=== PATIENT | female | born 1995 | race Caucasian/White ===

== ENCOUNTER 2016-11-24 18:27 | Emergency (ER) | payer OTHER ==
[2016-11-24 18:45] VITALS: BP 122/70; PULSE 64; RESP 18; TEMP 98.1
--- NOTE | 2016-11-24 18:51 | ED ---
Eye Problem HPI - General Chief complaint: Eye Problems Stated complaint: Eye Pain Time Seen by Provider: 11/24/16 18:45 Source: patient, RN notes reviewed Mode of arrival: ambulatory Limitations: no limitations - History of Present Illness Initial comments: 21-year-old female presents to the emergency Department chief complaint of swelling to the left lower eyelid. Patient states it started this morning. Patient states she put warm compresses on it. Patient states she was concerned that maybe something more that she should be doing. Patient denies. Patient states she was concerned due to her continued symptoms so she thought that she should be evaluated.Patient denies any recent fever, chills, shortness of breath , chest pain, back pain, abdominal pain, nausea vomiting, numbness or tingling, dysuria or hematuria, constipation or diarrhea, headaches or visual changes, or any other current symptoms. - Related Data Previous Rx's Medication Instructions Recorded Ibuprofen [Motrin] 600 mg PO Q6HR PRN #30 tab 02/20/16 Allergies Allergy/AdvReac Type Severity Reaction Status Date / Time No Known Allergies Allergy Verified 09/09/14 23:19 Review of Systems ROS Statement: Those systems with pertinent positive or pertinent negative responses have been documented in the HPI. ROS Other: All systems not noted in ROS Statement are negative. Past Medical History Past Medical History: No Reported History Additional Past Medical History / Comment(s): migraine headaches. Obstetric history: This is her first and she has had good care with me since 15 weeks. EDC 02-08-15 by 15 and 20 week US. A neg, abs neg, Rub nonimmune, RPR NR, Hep B neg, HIV NR. normal 1hr GTT and rhogam given 12/12/13. Her 35 week US showed baby to be 3#15 oz <10%ile but normal LEONEL. She had some NSTs that were reactive. 2 weeks later the baby measured 5# and was <3%ile for growth. History of Any Multi-Drug Resistant Organisms: None Reported Past Surgical History: No Surgical Hx Reported Past Anesthesia/Blood Transfusion Reactions: No Reported Reaction Past Psychological History: No Psychological Hx Reported Smoking Status: Current some day smoker Past Alcohol Use History: None Reported Past Drug Use History: None Reported - Past Family History Mother Family Medical History: No Reported History General Exam Limitations: no limitations General appearance: alert, in no apparent distress Head exam: Present: atraumatic, normocephalic, normal inspection Eye exam: Present: normal appearance, PERRL, EOMI, periorbital swelling (Into the left lower eyelid that is consistent with sty). Absent: scleral icterus, conjunctival injection ENT exam: Present: normal exam, mucous membranes moist Neck exam: Present: normal inspection. Absent: tenderness, meningismus, lymphadenopathy Respiratory exam: Present: normal lung sounds bilaterally. Absent: respiratory distress, wheezes, rales, rhonchi, stridor Cardiovascular Exam: Present: regular rate, normal rhythm, normal heart sounds. Absent: systolic murmur, diastolic murmur, rubs, gallop, clicks Neurological exam: Present: alert, oriented X3 Skin exam: Present: warm, dry, intact, normal color. Absent: rash Course Vital Signs 11/24/16 18:43 Temperature 98.1 F Pulse Rate 64 Respiratory 18 Rate Blood Pressure 122/70 O2 Sat by Pulse 98 Oximetry Medical Decision Making - Medical Decision Making 21-year-old female presents for besides the left eye. At this time we discussed care of this. We discussed follow-up return parameters. We discussed all the patient's questions. She stated she understood and she is in agreement with the plan. She will be discharged home. Disposition Clinical Impression: Hordeolum externum (stye) Disposition: HOME SELF-CARE Condition: Stable Instructions: Yisel (ED) Additional Instructions: Please use medication as discussed. Please follow up with family doctor if symptoms have not improved over the next two days. Please return to the emergency room if your symptoms increase or worsen or for any other concerns. Referrals: Tiffanie Fisher MD [Primary Care Provider] - 1-2 days Time of Disposition: 18:51
== END 2016-11-24 18:57 | disposition home or self-care (01) ==
LOC: EC 18:27
DX: H00.015 Hordeolum externum left lower eyelid (principal); F17.200 Nicotine dependence, unspecified, uncomplicated
CPT/HCPCS: 99283

== ENCOUNTER → 2017-04-15 | Outpatient (CLI) | payer OTHER ==
[2017-04-15 15:51] LABS: CH 30.2; CHCM 34.7; HCT 38.6 % (34.0-46.0); HDW 2.53; HGB 12.8 gm/dL (11.4-16.0); MCHC 33.1 g/dL (31.0-37.0); MCV 87.7 fL (80.0-100.0); Mean Platelet Volume 7.8; RBC 4.41 m/uL (3.80-5.40); RDW 14.1 % (11.5-15.5); WBC 10.4 k/uL (3.8-10.6)
--- NOTE | 2017-04-15 16:18 | US ---
EXAMINATION TYPE: US OB <= 14 wk fetus DATE OF EXAM: 04/15/2017 COMPARISON: NONE CLINICAL HISTORY: 21-year-old female Z36 Dates and viability. EXAM PERFORMED: Transabdominal (TA) FINDINGS: EXAM MEASUREMENTS: GESTATIONAL AGE / DATING Physician Established: unknown Dates by LMP: LMP unknown Dates by First Scan: no prior Dates by Current Scan: (13 weeks/5 days) EDC: 10/16/2017 MATERNAL ANATOMY Uterus: 13.3 x 6.8 x 9.8 cm Right Ovary: 3.7 x 1.5 x 2.8 cm Left Ovary: 3.0 x 1.9 x 3.3 cm Post CDS / Adnexa: wnl Presence of free fluid: wnl Presence of corpus luteal cyst: 1.9 cm on the right. Presence of subchorionic bleed: No. GESTATION / SURVEY BIOMETRY PRESENTATION: ?Breech LIE: Longitudinal BPD:2.2 cm??? 13weeks /5days HC:8.5 cm??? 13weeks/6days AC: 6.9cm??? 13weeks/4days FL:1.1 cm? 13 weeks/2days ESTIMATED WEIGHT IN GRAMS: 76 gr. ESTIMATED WEIGHT IN LBS/OZS:0 lbs. 3 oz. HEART RATE: 143 bpm Date of LMP: unknown Beta HcG (if available): Not available at this time IMPRESSION: 1. Single live intrauterine with average gestational age of 13 weeks 5 days by current ultr asound biometry. 2. Complete survey recommended at 18-20 weeks.
--- NOTE | 2017-04-15 16:19 | US ---
EXAMINATION TYPE: US thyroid st tissue head/neck DATE OF EXAM: 04/15/2017 COMPARISON: NONE CLINICAL HISTORY: 21-year-old female E04.9 Enlarged thyroid. TECHNIQUE: Multiple sonographic images of the thyroid gland are obtained. FINDINGS: GLAND SIZE: Right Lobe: 3.9 X 1.2 X 1.4 cm Overall Parenchyma: homogenous Left Lobe: 4.3 X 1.9 X 2.4 cm Overall Parenchyma: heterogeneous Isthmus Thickness: 0.2 cm NODULES RIGHT: # of nodules measured on right: 0 LEFT: # of nodules measured on left: 1 1. 3.5 X 1.8 x 1.9 cm heterogeneous isoechoic solid nodule at the mid pole with well-defined margin s; . This nodule is wider than tall and shows intranodular vascularity. Prior size: no prior ISTHMUS: # of nodules measured in the isthmus: 0 Bilateral neck scanned, no evidence of lymphadenopathy. IMPRESSION: Large 3.5 cm solid nodule in the left lobe. FNA should be considered.
[2017-04-15 16:24] LABS: Glucose 77 mg/dL (74-99); Non-African American GFR(MDRD) >60 (>60 ml/min/1.73 sqM)
[2017-04-15 17:48] LABS: Hepatitis B Surface Ag Index 0.06
[2017-04-16 01:00] LABS: Treponemal Ab Non-Reactive (Non-Reactive)
== END | disposition home or self-care (01) ==
LOC: RADUSWWP 14:44
PROVIDERS: ATTEND Obstetrics & Gynecology
DX: Z36 Encounter for antenatal screening of mother (principal); O99.284 Endocrine, nutritional and metabolic diseases complicating childbirth; E04.1 Nontoxic single thyroid nodule; O26.811 Pregnancy related exhaustion and fatigue, first trimester; Z3A.13 13 weeks gestation of pregnancy
CPT/HCPCS: 36415; 76536; 76801; 82565; 82947; 84439; 84443; 84481; 85027; 86376; 86762; 86780; 86800; 86850; 86900; 86901; 87340; 87390

== ENCOUNTER → 2017-08-12 | Outpatient (CLI) | payer OTHER ==
[2017-08-12 13:32] LABS: HCT 34.3 % (34.0-46.0); HGB 11.2 gm/dL (11.4-16.0); MCH 28.4 pg (25.0-35.0); MCHC 32.6 g/dL (31.0-37.0); MCV 87.3 fL (80.0-100.0); Mean Platelet Volume 8.3; Platelet Count 197 k/uL (150-450); RBC 3.93 m/uL (3.80-5.40); RDW 13.8 % (11.5-15.5); WBC 15.7 k/uL (3.8-10.6)
== END | disposition home or self-care (01) ==
LOC: LABWHC1 12:22
PROVIDERS: ATTEND Obstetrics & Gynecology
DX: Z34.83 Encounter for supervision of other normal pregnancy, third trimester (principal)
CPT/HCPCS: 36415; 82950; 85027; 86850

== ENCOUNTER 2017-10-14 06:00 | Inpatient (IN) | payer OTHER ==
[2017-10-14] MEDS ORDERED: TERBUTALINE 1 MG/ML VIAL SQ PRN (06:25)
[2017-10-14] MEDS ORDERED: LIDOCAINE 1% (PF) 10 MG/ML (30 ML SDV) SQ PRN (06:25)
[2017-10-14] MEDS ORDERED: METHYLERGONOVINE 0.2 MG/ML 1 ML AMP IM PRN (06:25)
[2017-10-14] MEDS ORDERED: CARBOPROST TROMETHAMINE 250 MCG/ML 1 ML AMP IM PRN (06:25)
[2017-10-14] MEDS ORDERED: OXYTOCIN 10 UNIT/ML 1 ML VIAL IM PRN (06:25)
[2017-10-14] MEDS: LACTATED RINGERS 1,000 ML IV SCH ×2 (06:32→12:29)
[2017-10-14] MEDS: OXYTOCIN 20 UNITS/1000 ML NS 1,000 ML IV SCH ×2 (06:35→19:33)
[2017-10-14 06:40] LABS: Basophils % (A) 0 %; Eosinophils # (A) 0.1 k/uL (0-0.7); Eosinophils % (A) 1 %; HCT 34.4 % (34.0-46.0); HGB 11.6 gm/dL (11.4-16.0); Lymphocytes # (A) 2.9 k/uL (1.0-4.8); Lymphocytes % (A) 23 %; MCHC 33.7 g/dL (31.0-37.0); Mean Platelet Volume 8.1; Monocytes # (A) 0.5 k/uL (0-1.0); Monocytes % (A) 4 %; Neutrophils # (A) 8.7 k/uL (1.3-7.7); Neutrophils % (A) 70 %; Platelet Count 239 k/uL (150-450); Poikilocytosis Slight; RBC 4.46 m/uL (3.80-5.40); RDW 13.9 % (11.5-15.5); WBC 12.5 k/uL (3.8-10.6)
[2017-10-14 06:45] LABS: MCV 77.1 fL (80.0-100.0)
[2017-10-14 06:54] VITALS: BMI 29.6
[2017-10-14] MEDS ORDERED: BUPIVACAINE (PF) 0.25% 25 ML, fentaNYL (PF) 200 MCG in SODIUM CHLORIDE 0.9% 71 ML EPIDURAL ONE (12:57)
[2017-10-14] MEDS ORDERED: BUPIVACAINE (PF) 0.25% 30 ML VIAL ONE (13:06)
[2017-10-14] MEDS ORDERED: fentaNYL (PF) 50 MCG/ML 5 ML AMP ONE (13:06)
[2017-10-14] MEDS ORDERED: SODIUM CHLORIDE 0.9% 100 ML BAG ONE (13:06)
[2017-10-14] MEDS ORDERED: BENZOCAINE/MENTHOL SPRAY 1 GM/SPRAY AEROSOL TOPICAL PRN (16:53)
[2017-10-14] MEDS ORDERED: WITCH HAZEL 1 EACH MED..PAD TOPICAL PRN (16:53)
[2017-10-14] MEDS ORDERED: diphenhydrAMINE 50 MG CAP PO PRN (16:53)
[2017-10-14] MEDS ORDERED: ZOLPIDEM 5 MG TAB PO PRN (16:53)
[2017-10-14] MEDS ORDERED: HYDROCORTISONE 2.5% RECTAL CREAM 30 GM TUBE RECTAL PRN (16:53)
[2017-10-14] MEDS ORDERED: diphenhydrAMINE 50 MG/ML 1 ML VIAL IVP PRN ×2 (16:53)
[2017-10-14] MEDS ORDERED: LANOLIN CREAM 5 GM TUBE TOPICAL PRN (16:53)
[2017-10-14] MEDS ORDERED: diphenhydrAMINE 25 MG CAP PO PRN (16:53)
[2017-10-14] MEDS ORDERED: SIMETHICONE 80 MG CHEWABLE PO PRN (16:53)
[2017-10-14] MEDS ORDERED: ACETAMINOPHEN TAB 325 MG TAB PO PRN (16:53)
--- NOTE | 2017-10-14 16:55 | P.HPOB ---
History of Present Illness H&P Date: 10/14/17 Chief Complaint: Intrauterine at term: Induction of labor Nannette is a 22-year-old at 39 weeks gestation arise for induction of labor. Her Precis course, K by an abnormal thyroid for which she sought general surgery. Otherwise her Precis course was unremarkable. There was a gap in care between 19 and 28 weeks but she didn't have good care following that. Pertinent labs could A- blood type Rh antibody was negative, rubella immune, hepatitis B surface antigen and RPR were both negative and she passed her 1 hour Glucola screen on physical exam vital signs are stable and afebrile. Heart regular, lungs clear, extremities are without pain. Osteopathic exam is unremarkable. She is dilated 1 cm 50% effaced -3 station. Artificial rupture membranes was performed clear fluid is noted. heart tones are in the 140s and reactive. Assessment intrauterine at term. Plan expect spontaneous vaginal delivery. She plans to use epidural for analgesia and we' ll anticipate Pitocin for augmentation of labor. 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, thyroid nodule History of Any Multi-Drug Resistant Organisms: None Reported Past Surgical History: No Surgical Hx Reported Past Anesthesia/Blood Transfusion Reactions: No Reported Reaction Past Psychological History: No Psychological Hx Reported Smoking Status: Current some day smoker Past Alcohol Use History: None Reported Past Drug Use History: None Reported - Past Family History Mother Family Medical History: No Reported History Medications and Allergies Home Medications Medication Instructions Recorded Confirmed Type Pnv No.95/Ferrous Fum/Folic AC 1 each PO DAILY 05/06/17 10/14/17 History [ Multivitamin Tablet] Ranitidine HCl [Zantac] 75 mg PO HS 10/14/17 10/14/17 History Allergies Allergy/AdvReac Type Severity Reaction Status Date / Time No Known Allergies Allergy Verified 10/14/17 06:24 Exam Osteopathic Statement: *. No significant issues noted on an osteopathic structural exam other than those noted in the History and Physical/Consult. - Vital Signs Vital signs: Vital Signs Temp Pulse Resp BP Pulse Ox 10/14/17 06:23 97.3 F L 99 16 121/73 98 Intake and Output 10/14/17 10/14/17 10/14/17 06:59 14:59 22:59 Other: Weight 80.739 kg Results Result Diagrams: 10/14/17 06:20 Abnormal Lab Results - Last 24 Hours (Table) 10/14/17 Range/Units 06:20 WBC 12.5 H (3.8-10.6) k/uL MCV 77.1 L D (80.0-100.0) fL Neutrophils # 8.7 H (1.3-7.7) k/uL
--- NOTE | 2017-10-14 16:57 | P.PROBDLV ---
Vaginal Delivery Note - . Vaginal Delivery Note: Nannette progressed to complete and pushing with spontaneous vaginal delivery of a viable female over an intact perineum. Falling deliver the head into shoulder did not easily deliver from right occiput anterior position therefore I did reach in posteriorly and grasp onto the axilla and while rotating in a counter clockwise fashion was able to free the anterior shoulder and the baby was fully delivered. I suspect had a little more traction applied that the anterior shoulder wouldn't release. I did not feel this was a shoulder dystocia however. Once baby was delivered mouth nares were bulb suctioned and baby was placed on mother's abdomen where the umbilical cord was allowed to pulsate for 20 seconds before clamping and cutting. Nursery personnel was present to assume care. Placenta was then delivered intact and Pitocin was added to the IV. scores were 9 and 9 at one and 5 minutes respectively and the weight is pending at this time. Both mother and baby currently appear stable.
[2017-10-14] MEDS: IBUPROFEN 600 MG TAB PO PRN (18:04)
[2017-10-14] MEDS ORDERED: FAMOTIDINE 20 MG TAB PO SCH (21:00)
[2017-10-14] MEDS ORDERED: Rhogam IMMUNE GLOBULIN 1,500 UNIT/1 ML IM ONE (21:08)
[2017-10-15] MEDS: IBUPROFEN 600 MG TAB PO PRN ×2 (03:36→16:10)
[2017-10-15] MEDS: LACTATED RINGERS 1,000 ML IV SCH (03:56)
[2017-10-15] MEDS: SENNOSIDES-DOCUSATE SODIUM 1 EACH TAB PO SCH ×2 (09:39)
[2017-10-15 10:19] VITALS: RESP 17
[2017-10-15 16:20] VITALS: BP 117/74; PULSE 80; TEMP 97.8
== END 2017-10-15 17:16 | disposition home or self-care (01) | DRG 775 ==
LOC: 4FBP 06:12
PROVIDERS: ADMIT Obstetrics & Gynecology; ATTEND Obstetrics & Gynecology
PROC: 10E0XZZ Delivery of Products of Conception, External Approach (ICD-10-PCS; principal; 2017-10-14)
PROC: 10907ZC Drainage of Amniotic Fluid, Therapeutic from Products of Conception, Via Natural or Artificial Opening (ICD-10-PCS; 2017-10-14)
PROC: 3E033VJ Introduction of Other Hormone into Peripheral Vein, Percutaneous Approach (ICD-10-PCS; 2017-10-14)
DX: O99.334 Smoking (tobacco) complicating childbirth (principal); F17.200 Nicotine dependence, unspecified, uncomplicated; Z37.0 Single live birth; Z3A.39 39 weeks gestation of pregnancy; Z85.820 Personal history of malignant melanoma of skin; Z86.69 Personal history of other diseases of the nervous system and sense organs; Z86.39 Personal history of other endocrine, nutritional and metabolic disease; Z79.899 Other long term (current) drug therapy
CPT/HCPCS: 85025; 85461; 88307

== ENCOUNTER 2017-12-28 06:20 | Day surgery (SDC) | payer OTHER ==
[2017-12-21 15:34] VITALS: BMI 27.3
--- NOTE | 2017-12-27 16:26 | P.HPOB ---
History of Present Illness H&P Date: 12/27/17 Chief Complaint: Family planning Nannette has completed her family planning and desires permanent sterilization. Risks/benefits/alternatives to this procedure were discussed with the patient in detail and all questions were answered for patient prior to proceeding to the operating room. She is scheduled for a left scopic tubal occlusion with Filshie clips. 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 Patient states to me that she had MRSA on her L leg. History of Any Multi-Drug Resistant Organisms: MRSA Date of last positivie culture/infection: 2012 MDRO Source:: L upper thigh Past Surgical History: No Surgical Hx Reported Past Anesthesia/Blood Transfusion Reactions: No Reported Reaction Additional Past Anesthesia/Blood Transfusion Reaction / Comment(s): Has never had anesthesia. States pain medications causes nausea and vomiting. Smoking Status: Current some day smoker - Past Family History Mother Family Medical History: No Reported History Medications and Allergies Home Medications Medication Instructions Recorded Confirmed Type No Known Home Medications [No 12/21/17 12/21/17 History Known Home Medications] Allergies Allergy/AdvReac Type Severity Reaction Status Date / Time pain meds AdvReac Nausea & Uncoded 12/21/17 13:40 Vomiting Exam Osteopathic Statement: *. No significant issues noted on an osteopathic structural exam other than those noted in the History and Physical/Consult. - OBG Physical Exam Breast: both: normal (no masses) Abdomen: bowel sounds normal, no diffuse tenderness, no bruit present, no guarding noted, no hepatomegaly, no splenomegaly, no mass Vulva: both: normal Vagina: normal moisture, no discharge Cervix: no lesion, no discharge Uterus: normal size, normal contour Adnexa: both: normal Anus/Rectum: normal perianal skin, no rectal mass, no hemorrhoids, heme negative
[~2017-12-28 06:20] MED LIST: HYDROmorphone 0.5 MG/0.5 ML SYRINGE IVP PRN; ONDANSETRON 4 MG/2 ML VIAL IVP PRN; Pre Op ABX Message 1 EACH MISC MISCELLANE ONE; fentaNYL (PF) 50 MCG/ML 2 ML AMP IV PRN
[2017-12-28] MEDS ORDERED: LIDOCAINE 1% 20 ML VIAL (10MG/ML) FOR IV START INTRADERMA ONE (06:51)
[2017-12-28 06:59] VITALS: RESP 16
[2017-12-28] MEDS: LACTATED RINGERS 1,000 ML IV SCH ×2 (07:02→07:32)
[2017-12-28 07:04] LABS: Anisocytosis Slight; Basophils % (A) 0 %; Eosinophils # (A) 0.1 k/uL (0-0.7); Eosinophils % (A) 1 %; HCT 42.4 % (34.0-46.0); HGB 13.8 gm/dL (11.4-16.0); Lymphocytes # (A) 3.6 k/uL (1.0-4.8); Lymphocytes % (A) 40 %; MCH 26.4 pg (25.0-35.0); MCHC 32.6 g/dL (31.0-37.0); MCV 80.8 fL (80.0-100.0); Mean Platelet Volume 6.6; Monocytes # (A) 0.4 k/uL (0-1.0); Monocytes % (A) 5 %; Neutrophils # (A) 4.6 k/uL (1.3-7.7); Neutrophils % (A) 52 %; Platelet Count 256 k/uL (150-450); RBC 5.24 m/uL (3.80-5.40); RDW 16.5 % (11.5-15.5); WBC 8.9 k/uL (3.8-10.6)
[2017-12-28] MEDS ORDERED: ONDANSETRON 4 MG/2 ML VIAL ONE (07:12)
[2017-12-28] MEDS ORDERED: DEXAMETHASONE SOD PHOSPHATE 10 MG/ML 1 ML VIAL IV ONE (07:30)
[2017-12-28] MEDS ORDERED: NEOSTIGMINE 1 MG/ML 10 ML VIAL ONE (07:35)
[2017-12-28] MEDS ORDERED: SUCCINYLCHOLINE CHLORIDE 100 MG/5 ML SYR IV ONE (07:35)
[2017-12-28] MEDS ORDERED: PROPOFOL 10 MG/ML 20 ML VIAL IV ONE (07:35)
[2017-12-28] MEDS ORDERED: BUPIVACAINE (PF) 0.5% 30 ML VIAL SQ ONE ×2 (07:35→07:52)
[2017-12-28] MEDS ORDERED: fentaNYL (PF) 50 MCG/ML 2 ML AMP ONE (07:35)
[2017-12-28] MEDS ORDERED: KETOROLAC 30 MG/ML 1 ML VIAL ONE (07:35)
[2017-12-28] MEDS ORDERED: MIDAZOLAM 2 MG/2 ML VIAL ONE (07:35)
[2017-12-28] MEDS ORDERED: LIDOCAINE 1% INJ 10MG/ML (20 ML MDV) ONE (07:35)
[2017-12-28] MEDS ORDERED: ROCURONIUM BROMIDE 10 MG/ML 10 ML VIAL IV ONE (07:35)
[2017-12-28] MEDS ORDERED: GLYCOPYRROLATE 0.2 MG/ML 2 ML VIAL ONE (07:35)
--- NOTE | 2017-12-28 08:06 | P.OP ---
Date of Procedure: 12/28/17 Preoperative Diagnosis: Family planning Postoperative Diagnosis: Same Procedure(s) Performed: Laparoscopic tubal occlusion Filshie clips Anesthesia: VADIM Surgeon: Andrea Shi Estimated Blood Loss (ml): 3 Urine output (ml): 30 Pathology: none sent Condition: stable Disposition: same day Operative Findings: Normal female pelvic anatomy Description of Procedure: Nannette was taken to the operating suite where a general anesthetic was found be adequate. She was prepped and draped in normal sterile fashion and placed in dorsal lithotomy position. Initially a speculum was inserted into the vagina and the anterior lip identified and grasped with an Allis clamp. Cervix was then sounded to 8 cm and a manipulator was inserted. Red rubber catheter was then used to drain the bladder of urine and extra attachments were removed from the vagina. Gloves were changed and attention was turned to the abdominal portion procedure where 2 mL of quarter percent Marcaine was injected periumbilically. Through this injected anesthetic a 5 mm skin incision was made and through this incision under direct visualization with an optical trocar and sleeve the camera was inserted. Once peritoneal placement was assured gas was left fully insufflate the abdomen and patient was then placed in steep Trendelenburg position. A second 8 mm skin incision was then made 3 cm above the pubic symphysis in the midline and an 8 mm trocar and sleeve were inserted again under direct visualization. Once this was completed observations pelvis were noted. First the right fallopian tube than was occluded with a Filshie clip in the left tube. Please clips were placed approximately 2 cm from uterine cornu. No bleeding is noted in the mesosalpinx therefore instruments were removed and gas was allowed to expel from the abdomen. 5 deep breaths were provided during this process. 4-0 Vicryl was then used to close incision subcuticularly and instruments were removed from vagina. Sponge, lap, needle counts were all correct 2. Patient was then taken to the recovery room in stable and satisfactory condition. Plan - Discharge Summary New Discharge Prescriptions: New Ibuprofen [Motrin] 600 mg PO Q6HR PRN #30 tab PRN Reason: Pain Discharge Medication List Ibuprofen [Motrin] 600 mg PO Q6HR PRN #30 tab 12/28/17 [Rx] Follow up Appointment(s)/Referral(s): Andrea Shi DO [Doctor of Osteopathic Medicine] - 2 Weeks Activity/Diet/Wound Care/Special Instructions: No heavy lifting, limit stairs and driving, and pelvic rest. If any high temperatures, heavy bleeding, or severe pain call my office Discharge Disposition: HOME SELF-CARE
[2017-12-28] MEDS: HYDROmorphone 1 MG/ML 1 ML SYRINGE IVP ONE ×4 (08:19→08:48)
[2017-12-28 08:28] VITALS: TEMP 96.8
[2017-12-28] MEDS ORDERED: HYDROcodone/APAP 5-325MG 1 EACH TAB PO ONE (09:48)
[2017-12-28 10:35] VITALS: BP 101/62; PULSE 77
== END 2017-12-28 11:01 | disposition home or self-care (01) ==
LOC: OR 06:20
PROVIDERS: ATTEND Obstetrics & Gynecology
DX: Z30.2 Encounter for sterilization (principal); Z86.14 Personal history of Methicillin resistant Staphylococcus aureus infection; F17.210 Nicotine dependence, cigarettes, uncomplicated
CPT/HCPCS: 85025; 84703; 58671; J2250; J1100; J2710; J2405; J2001; J3010; J1885; J1170; J0330; J2704

== ENCOUNTER → 2018-07-06 | Outpatient (CLI) | payer OTHER ==
--- NOTE | 2018-07-06 14:13 | US ---
EXAMINATION TYPE: US thyroid st tissue head/neck DATE OF EXAM: 07/06/2018 COMPARISON: Prior thyroid ultrasound April 15, 2017. CLINICAL HISTORY: E04.1 THYROID NODULE. History of Thyroid nodule GLAND SIZE: Right Lobe: 3.6 x 1.3 x 1.4 cm Overall Parenchyma: homogenous Left Lobe: 5.1 x 2.5 x 3.0 cm Overall Parenchyma: heterogeneous Isthmus Thickness: 0.3 cm NODULES RIGHT: # of nodules measured on right: 0 LEFT: # of nodules measured on left: 1 1. 4.2 X 2.3 x 2.7 cm isoechoic mixed nodule at the mid pole with well-defined margins; . This nod ule is wider than tall and shows intranodular vascularity. Prior size: 3.5 x 1.8 x 1.9 cm ISTHMUS: # of nodules measured in the isthmus: 0 Bilateral neck scanned, no evidence of lymphadenopathy. Continued interval enlargement in dominant left thyroid nodule based on today's measurements. Correla te clinically and with biopsy results May 17, 2017 to determine possible need for resampling. No new suspicious nodules are present. IMPRESSION: As above.
== END ==
LOC: RADUSWWP 10:16
PROVIDERS: ATTEND Surgery
DX: E04.1 Nontoxic single thyroid nodule (principal)
CPT/HCPCS: 76536